=== PATIENT | male | born 1975 | race Caucasian/White ===

== ENCOUNTER 2018-10-13 16:01 | Emergency (ER) | payer BC ==
[~2018-10-13] VITALS: Ht 185.4 cm; Wt 111.1 kg
[2018-10-13 16:18] VITALS: BP 192/111; Ht 185.4 cm; Wt 111.1 kg
== END 2018-10-13 18:26 | disposition home or self-care (01) ==
LOC: ED 16:01
DX: L02.612 Cutaneous abscess of left foot (principal)
CPT/HCPCS: J2001; Q0092